=== PATIENT | female | born 1955 | race Caucasian/White ===

== ENCOUNTER 2018-09-16 08:50 | Day surgery (SDC) | payer MEDICAID ==
[~2018-09-16] VITALS: Ht 162.6 cm; Wt 90.7 kg
--- NOTE | ~2018-09-16 | HP ---
PATIENT: PALLAVI BACA MEDICAL RECORD: [id number] ACCOUNT: [id number] LOCATION:[facility] : 55 ADMISSION DATE: 09/16/18 PCP: HISTORY AND PHYSICAL EXAMINATION PREOPERATIVE HISTORY AND PHYSICAL HISTORY OF PRESENT ILLNESS: Ms. Baca is 63 years old. She has been having problems with snoring, uvula edema, and nasal obstruction and turbinate hypertrophy, refractory to medical management. She is being admitted for bilateral inferior turbinate reduction and uvulectomy. PAST MEDICAL HISTORY: Includes hypertension. CURRENT MEDICATIONS: Include metoprolol, Ambien, Effexor. ALLERGIES: No known drug allergies. PHYSICAL EXAMINATION: GENERAL: She is healthy-appearing, developmentally normal. FACE: Normal, symmetric, no lesions. EYES: Sclerae and conjunctivae are normal. EARS: Canals and TMs are normal. NOSE: Large inferior turbinates. Septum is relatively straight. No masses or polyps. ORAL CAVITY AND OROPHARYNX: Status post tonsillectomy. Uvula was edematous, inflamed. NECK: No masses, no adenopathy. CHEST: Clear. CARDIOVASCULAR: Regular rate and rhythm, no murmur. EXTREMITIES: Normal. IMPRESSION: Snoring, uvula hypertrophy, recurrent edema, nasal obstruction, and turbinate hypertrophy. PLAN: Turbinate reduction and uvulectomy. TRANSINT:[id number] Voice Confirmation ID: [id number] DOCUMENT ID: [id number] NELLA HAY MD CC: [id number] DICTATION DATE: 09/12/18 1540 METROLOGIST: 09/12/18 1601 [id number] [place] [address]
--- NOTE | ~2018-09-16 | OP ---
PATIENT NAME: PALLAVI ROMERO MEDICAL RECORD: [id number] :55 LOCATION:[facility] ADMISSION DATE: SURGEON: NELLA LOW MD DATE OF OPERATION: 09/16/2018 SURGEON: Nella Low MD PROCEDURES: Bilateral inferior turbinate reduction and uvulectomy. SPECIMENS: Uvula. BLOOD LOSS: 1 cc. COMPLICATIONS: None. DISPOSITION: Recovery, stable. PROCEDURE NOTE: She was brought to the operating room, placed in supine position, and sedated and intubated by anesthesia. She had been decongested with Afrin preoperatively. Both inferior turbinates were injected with a total of less than 1 cc of 1% lidocaine with 1:100,000 epinephrine. Afrin pledgets were placed on each side of the nose. Table was turned 90 degrees. Using a headlight, a Moriah-Olvin mouth gag was carefully inserted and elevated on a towel on her chest. The palate was examined and normal. She had no tonsils. Mirror was used to examine the nasopharynx, which was normal. No significant adenoid tissue. Spatula tip cautery over the base of the uvula was injected again with less than 0.5 cc of 1% lidocaine with 1:100,000 epinephrine with a long 27-gauge needle. Spatula tip cautery was used to divide the uvula along its base, preserving the mucosa of the palate. There was no significant bleeding. It was closed with interrupted 3-0 Vicryl. The pharynx was examined and normal. A red rubber catheter was let down and removed. Afrin pledgets were removed from the nose. A Gruenwald was used to take down the inferior portion of the turbinate. Suction cautery on a setting of 25 was used to stop any bleeding. They were both outfractured with a Clarion elevator. The septum was straight with good nasal passage bilaterally. No bleeding. No packing was placed. Moriah-Olvin mouth gag had already been removed. She was awakened, extubated, and transported to recovery in good condition. No complications. TRANSINT:[id number] Voice Confirmation ID: [id number] DOCUMENT ID: [id number] NELLA LOW MD CC: [id number] DICTATION DATE: 09/16/18 1412 AUTO BODY REPAIR TEACHER: 09/16/18 1448 [facility] [address] [place] [address]
[2018-09-16 09:25] LABS: HEMATOCRIT 40.2 % (36.0-48.0); HEMOGLOBIN 13.5 g/dL (12-16); MCH 31.2 pg (26.0-34.0); MCHC 33.6 g/dL (31.0-37.0); MCV 92.8 fL (80.0-100.0); MEAN PLATELET VOLUME 9.3 fL (7.4-10.4); RBC 4.33 10x6/uL (4.00-5.40); RDW 12.9 % (11.5-14.5); WBC 6.1 10x3/uL (4.8-10.8)
[2018-09-16] MEDS ORDERED: TOPROL XL25 MG PO (09:48)
[2018-09-16] MEDS ORDERED: PROTONIX40 MG PO (09:49)
[2018-09-16] MEDS ORDERED: EFFEXOR XR150 MG PO (09:49)
[2018-09-16] MEDS ORDERED: AMBIEN10 MG PO (09:49)
[2018-09-16] MEDS ORDERED: ZOFRAN4 MG PO (09:50)
[2018-09-16] MEDS ORDERED: CYCLOBENZAPRINE10 MG PO (09:50)
[2018-09-16] MEDS ORDERED: NAPROXEN250 MG PO (09:51)
[2018-09-16] MEDS ORDERED: LIPITOR10 MG PO (09:51)
[2018-09-16 09:58] VITALS: BP 127/77; Ht 162.6 cm; Wt 90.7 kg
== END 2018-09-16 16:10 | disposition home or self-care (01) ==
LOC: D.OPS 08:50 → D.PAN 10:15 → D.OPS 11:00 → D.PAN 11:00 → D.OPS 16:10
PROVIDERS: Anesthesiology; ATTEND Otolaryngology
DX: K13.79 Other lesions of oral mucosa (principal); J34.3 Hypertrophy of nasal turbinates; J34.89 Other specified disorders of nose and nasal sinuses; Z01.812 Encounter for preprocedural laboratory examination

== ENCOUNTER → 2018-09-27 08:50 | Day surgery (SDC) | payer MEDICAID ==
[2018-09-26 11:57] LABS: HEMATOCRIT 43.1 % (36.0-48.0); HEMOGLOBIN 14.7 g/dL (12-16); MCH 31.9 pg (26.0-34.0); MCHC 34.1 g/dL (31.0-37.0); MCV 93.5 fL (80.0-100.0); MEAN PLATELET VOLUME 9.2 fL (7.4-10.4); RBC 4.61 10x6/uL (4.00-5.40); RDW 12.9 % (11.5-14.5); WBC 8.8 10x3/uL (4.8-10.8)
[~2018-09-27] VITALS: Ht 162.6 cm; Wt 93.0 kg
[~2018-09-27 08:50] MED LIST: ACETAM; AMBIEN10 MG PO; CYCLOBENZAPRINE10 MG PO; EFFEXOR XR150 MG PO; FLAGYL500 MG; HYDROCOD; LIPITOR10 MG PO; NAPROXEN250 MG PO; PROTONIX40 MG PO; TOPROL XL25 MG PO; ZOFRAN4 MG PO; [UNRECOGNIZED DRUG - OTHER]; [UNRECOGNIZED DRUG - OTHER]
[2018-09-27 09:14] VITALS: BP 144/67; Ht 162.6 cm; Wt 93.0 kg
--- NOTE | 2018-09-27 18:15 | NUR ---
PER DR. LOPEZ, IN AND OUT CATH'D FOR 500 CC OF CLEAR MEDIUM MANDI/YELLOW URINE. IV D/C'D WITH CATHETER INTACT
== END | disposition home or self-care (01) ==
LOC: D.OPS 08:50 → D.PAN 10:45 → D.OPS 10:45
PROVIDERS: Anesthesiology; ATTEND Surgery
DX: K82.8 Other specified diseases of gallbladder (principal)

== ENCOUNTER → 2018-10-08 09:47 | Outpatient (CLI) | payer MEDICAID | END | disposition home or self-care (01) | LOC: D.US 09:47 | DX: A06.9 Amebiasis, unspecified (principal) ==

== ENCOUNTER → 2018-10-22 08:46 | Outpatient (CLI) | payer MEDICAID ==
[2018-09-27 09:14] VITALS: BMI 35.2
== END | disposition home or self-care (01) ==
LOC: D.MRI 10-18 09:00
PROVIDERS: ATTEND Internal Medicine Gastroenterology
DX: R93.89 Abnormal findings on diagnostic imaging of other specified body structures (principal); A06.9 Amebiasis, unspecified

== ENCOUNTER → 2018-11-18 11:48 | Outpatient (CLI) | payer MEDICAID ==
[2018-09-27 09:14] VITALS: BMI 35.2
== END | disposition home or self-care (01) ==
LOC: D.LAB 11:48
PROVIDERS: ATTEND Internal Medicine Gastroenterology
DX: K76.0 Fatty (change of) liver, not elsewhere classified (principal); R93.89 Abnormal findings on diagnostic imaging of other specified body structures

== ENCOUNTER → 2019-02-04 12:36 | Outpatient (CLI) | payer MEDICAID ==
[2018-09-27 09:14] VITALS: BMI 35.2
== END | disposition home or self-care (01) ==
LOC: D.RAD 01-16 13:00
PROVIDERS: ATTEND Internal Medicine Gastroenterology
DX: R13.10 Dysphagia, unspecified (principal)